=== PATIENT | female | born 1985 | race African-American/Black ===

== ENCOUNTER 2023-08-27 20:56 | Emergency (ER) | payer SELFPAY ==
[2023-08-27 21:54] LABS: #Basophils 0.1 thou/uL (0.0-0.2); #Eosinphils 0.2 thou/uL (0.0-0.7); #Monocytes 0.8 thou/uL (0.11-0.59); #Neutrophils 3.2 thou/uL (1.40-6.50); %Basophils 0.8 % (0.0-1.0); %Eosinophils 3.4 % (0.0-10.0); %Lymphocytes 33.2 % (21.0-51.0); %Monocytes 12.6 % (0.0-10.0); %Neutrophils 49.8 % (42.0-75.0); Hematocrit 31.2 % (36.0-47.0); Hemoglobin 9.1 g/dL (12.0-16.0); Mean Corpuscular HGB CONC 29.2 g/dL (32.0-36.0); Mean Corpuscular Hemoglobin 22.6 pg (27.0-31.0); Mean Corpuscular Volume 77.6 fl (78.0-98.0); Mean Platelet Volume 9.7 fL (7.4-10.4); Platelet Count 421 10x3/uL (130-400); RBC Distribution Width 15.9 % (11.5-14.5); Red Blood Cell (RBC) Count 4.02 mill/uL (4.20-5.40); White Blood Cell (WBC) Count 6.4 10x3/uL (4.8-10.8)
== END 2023-08-27 22:16 | disposition home or self-care (01) ==
LOC: ERS 20:56
DX: R42 Dizziness and giddiness (principal); D64.9 Anemia, unspecified; N93.8 Other specified abnormal uterine and vaginal bleeding
CPT/HCPCS: 36415; 85025; 93005

== ENCOUNTER 2023-09-08 09:35 | Emergency (ER) | payer SELFPAY ==
[2023-09-08 10:49] LABS: #Eosinphils 0.4 thou/uL (0.0-0.7); #Monocytes 0.6 thou/uL (0.11-0.59); #Neutrophils 2.8 thou/uL (1.40-6.50); %Basophils 0.6 % (0.0-1.0); %Eosinophils 7.8 % (0.0-10.0); %Lymphocytes 23.5 % (21.0-51.0); %Monocytes 12.5 % (0.0-10.0); %Neutrophils 55.4 % (42.0-75.0); Hematocrit 32.5 % (36.0-47.0); Hemoglobin 9.6 g/dL (12.0-16.0); Mean Corpuscular HGB CONC 29.5 g/dL (32.0-36.0); Mean Corpuscular Hemoglobin 24.1 pg (27.0-31.0); Mean Corpuscular Volume 81.5 fl (78.0-98.0); Mean Platelet Volume 9.7 fL (7.4-10.4); Platelet Count 422 10x3/uL (130-400); RBC Distribution Width 19.9 % (11.5-14.5); Red Blood Cell (RBC) Count 3.99 mill/uL (4.20-5.40)
[2023-09-08 11:13] LABS: Troponin I Less than 0.010 ng/mL (< 0.028)
[2023-09-08 11:50] LABS: ALT (SGPT) 12 U/L (8-55); AST (SGOT) 20 U/L (5-34); Alkaline Phosphatase 51 U/L (40-110); Anion Gap 12 mmol/L (10-20); BUN (Urea Nitrogen) 8 mg/dL (7.0-18.7); Bilirubin, Total 0.2 mg/dL (0.2-1.2); Calc. Creatinine Clearance 0 mL/min (70-130); Calcium 8.7 mg/dL (7.8-10.44); Carbon Dioxide 22 mmol/L (22-29); Chloride 108 mmol/L (98-107); Estimated GFR 116; Globulin 3.4 g/dL (2.4-3.5); Glucose 102 mg/dL (70-105); Protein, Total 7.4 g/dL (6.0-8.3); Sodium 138 mmol/L (136-145)
== END 2023-09-08 12:14 | disposition home or self-care (01) ==
LOC: ERS 09:35
DX: F41.9 Anxiety disorder, unspecified (principal); H93.13 Tinnitus, bilateral; R00.0 Tachycardia, unspecified; T43.225A Adverse effect of selective serotonin reuptake inhibitors, initial encounter; D50.9 Iron deficiency anemia, unspecified
CPT/HCPCS: 36415; 80053; 84484; 85025; 93005